=== PATIENT | female | born 1960 | race Caucasian/White ===

== ENCOUNTER 2019-11-16 16:15 | Emergency (ER) | payer SELFPAY ==
[~2019-11-16] VITALS: Ht 162.6 cm; Wt 72.6 kg
[2019-11-16 16:22] VITALS: BP_SYST 144
== END 2019-11-16 20:00 | disposition left against medical advice (07) ==
LOC: SED 16:15
DX: S70.251A Superficial foreign body, right hip, initial encounter (principal); Z53.21 Procedure and treatment not carried out due to patient leaving prior to being seen by health care provider; W22.8XXA Striking against or struck by other objects, initial encounter; Y93.89 Activity, other specified; Y92.89 Other specified places as the place of occurrence of the external cause; Y99.8 Other external cause status
CPT/HCPCS: 73502